=== PATIENT | female | born 1975 | race African-American/Black ===

== ENCOUNTER 2017-03-30 20:51 | Emergency (ER) | payer OTHER, MEDICAID ==
[~2017-03-30] VITALS: Ht 152.4 cm; Wt 54.0 kg
[2017-03-31 03:27] LABS: CLARITY URINE CLOUDY (CLEAR); COLOR URINE YELLOW (YELLOW); GLUCOSE URINE NEGATIVE (NEGATIVE); KETONES URINE TRACE (NEGATIVE); LEUKOCYTE ESTERASE URINE NEGATIVE (NEGATIVE); NITRITE URINE NEGATIVE (NEGATIVE); OCCULT BLOOD URINE TRACE (NEGATIVE); PROTEIN URINE TRACE (NEGATIVE); SPECIFIC GRAVITY URINE 1.035 (1.005-1.030)
[2017-03-31] MEDS ORDERED: DIPHENHYDRAMINE 50MG CAPSULE PO ONE (03:30)
[2017-03-31 03:32] LABS: CHLORIDE 108 mEq/L (98-107)
[2017-03-31 03:39] LABS: CARBON DIOXIDE 27 mEq/L (21-32)
[2017-03-31 03:41] LABS: BASOPHILS % 1.2 % (0.0-2.0); EOSINOPHILS % 5.5 % (0.0-5.0); HEMATOCRIT. 28.8 % (36.0-48.0); HEMOGLOBIN. 9.1 g/dL (12.0-16.0); LYMPHOCYTES % 23.5 % (20.0-50.0); MEAN CORPUSCULAR HEMOGLOBIN 24.8 pg (28.0-32.0); MEAN CORPUSCULAR VOLUME 78.3 fL (81.0-99.0); MEAN PLATELET VOLUME 7.7 fl (7.4-10.4); MONOCYTES % 9.9 % (2.0-8.0); NEUTROPHILS % 59.9 % (40.0-76.0); PLATELET 477 x1000/uL (130-400); RED BLOOD CELL COUNT 3.67 mill/uL (4.2-5.4); RED CELL DISTRIBUTION WIDTH 16.6 % (11.6-14.6)
[2017-03-31 06:07] VITALS: BP 105/68
[2017-03-31 12:22] LABS: UCG SCREEN NEGATIVE
== END 2017-03-31 06:09 | disposition home or self-care (01) ==
LOC: ER 03-31 01:22
DX: R21 Rash and other nonspecific skin eruption (principal); E11.9 Type 2 diabetes mellitus without complications
CPT/HCPCS: 36415; 80048; 80076; 81001; 81025; 85025; 99282; 99284; Q0163

== ENCOUNTER 2017-07-03 09:15 | Inpatient (IN) | payer OTHER, MEDICAID ==
[~2017-07-03] VITALS: Ht 152.4 cm; Wt 52.2 kg
[2017-07-03] MEDS ORDERED: DIPHENHYDRAMINE 50MG/ML VIAL IV ONE (12:15)
[2017-07-03 13:13] LABS: *AMPHETAMINES SCREEN URINE NEGATIVE (NEGATIVE); *BARBITURATES SCREEN URINE NEGATIVE (NEGATIVE); *BENZODIAZEPINES SCREEN URINE NEGATIVE (NEGATIVE); *COCAINE SCREEN URINE NEGATIVE (NEGATIVE); CANNABINOID URINE SCREEN NEGATIVE (NEGATIVE); METHADONE URINE SCREEN NEGATIVE (NEGATIVE); OPIATES URINE SCREEN NEGATIVE (NEGATIVE); PHENCYCLIDINE URINE SCREEN NEGATIVE (NEGATIVE)
[2017-07-03] MEDS ORDERED: FUROSEMIDE 40MG/4ML VIAL IVP ONE (13:30)
[2017-07-03 13:33] LABS: BASOPHILS % 0.9 % (0.0-2.0); EOSINOPHILS % 4.8 % (0.0-5.0); HEMATOCRIT. 24.8 % (36.0-48.0); HEMOGLOBIN. 7.9 g/dL (12.0-16.0); LYMPHOCYTES % 20.7 % (20.0-50.0); MEAN CORPUSCULAR HEMOGLOBIN 24.2 pg (28.0-32.0); MEAN CORPUSCULAR VOLUME 76.4 fL (81.0-99.0); MEAN PLATELET VOLUME 8.4 fl (7.4-10.4); MONOCYTES % 10.3 % (2.0-8.0); NEUTROPHILS % 63.3 % (40.0-76.0); PLATELET 276 x1000/uL (130-400); RED BLOOD CELL COUNT 3.25 mill/uL (4.2-5.4); RED CELL DISTRIBUTION WIDTH 18.6 % (11.6-14.6)
[2017-07-03 13:36] LABS: CARBON DIOXIDE 22 mEq/L (21-32); CHLORIDE 111 mEq/L (98-107)
[2017-07-03 13:39] LABS: INR 1.2; PROTHROMBIN TIME 12.1 sec (9.4-11.6)
[2017-07-03 13:43] LABS: HCG SCREEN NEGATIVE
[2017-07-03] MEDS ORDERED: KETOROLAC 30MG/ML VIAL IV ONE (13:45)
[2017-07-03] MEDS ORDERED: CLONIDINE 0.1MG TABLET PO PRN (14:30)
[2017-07-03] MEDS ORDERED: IPRATROPIUM/ALBUTEROL 0.5-3(2.5)MG/3ML NEB INH PRN (14:30)
[2017-07-03] MEDS ORDERED: ONDANSETRON HCL 4MG/2ML VIAL IV PRN (14:30)
[2017-07-03] MEDS ORDERED: ACETAMINOPHEN 325MG TABLET PO PRN (14:30)
[2017-07-03] MEDS ORDERED: DOCUSATE SODIUM 100MG CAPSULE PO PRN (14:30)
[2017-07-03] MEDS ORDERED: MAGNESIUM/ALUMINUM HYDROXIDE/SIMETHICONE 30ML UDC PO PRN (14:30)
[2017-07-03 14:43] LABS: TROPONIN I 0.03 ng/mL (0.00-0.04)
[2017-07-03 15:55] LABS: HEPATITIS B SURFACE ANTIGEN NEGATIVE
[2017-07-03 16:23] LABS: HEPATITIS B CORE AB IGM NEGATIVE
[2017-07-03 16:25] LABS: HEPATITIS A AB IGM NEGATIVE (NEGATIVE)
[2017-07-03 20:00] VITALS: BP 104/72
[2017-07-03] MEDS: FUROSEMIDE 40MG/4ML VIAL IV SCH (20:03)
[2017-07-03] MEDS: FERROUS SULFATE 325MG TABLET PO SCH (20:04)
[2017-07-03] MEDS: POTASSIUM CHLORIDE 20MEQ TABLET SR PO SCH (20:04)
[2017-07-03] MEDS: AMLODIPINE 2.5MG TABLET PO SCH (20:44)
[2017-07-03] MEDS: ENOXAPARIN 40MG/0.4ML SYR SUBCUT SCH (20:46)
[2017-07-04] VITALS: BP 107/67
[2017-07-04] MEDS: DIPHENHYDRAMINE 25MG CAPSULE PO PRN ×3 (00:46→16:20)
[2017-07-04] MEDS: HYDROCODONE/ACETAMINOPHEN 5/325MG TABLET PO PRN ×3 (00:48→16:20)
[2017-07-04 04:00] VITALS: BP 101/55
[2017-07-04 07:30] LABS: BASOPHILS % 1.1 % (0.0-2.0); EOSINOPHILS % 9.1 % (0.0-5.0); HEMATOCRIT. 25.1 % (36.0-48.0); HEMOGLOBIN. 7.8 g/dL (12.0-16.0); LYMPHOCYTES % 26.9 % (20.0-50.0); MEAN CORPUSCULAR HEMOGLOBIN 23.6 pg (28.0-32.0); MEAN CORPUSCULAR VOLUME 75.5 fL (81.0-99.0); MEAN PLATELET VOLUME 8.9 fl (7.4-10.4); MONOCYTES % 12.4 % (2.0-8.0); NEUTROPHILS % 50.5 % (40.0-76.0); PLATELET 312 x1000/uL (130-400); RED BLOOD CELL COUNT 3.32 mill/uL (4.2-5.4); RED CELL DISTRIBUTION WIDTH 18.6 % (11.6-14.6)
[2017-07-04 07:53] VITALS: BP 94/61
[2017-07-04] MEDS: POTASSIUM CHLORIDE 20MEQ TABLET SR PO SCH (08:05)
[2017-07-04] MEDS: FERROUS SULFATE 325MG TABLET PO SCH ×2 (08:05→17:25)
[2017-07-04] MEDS: FUROSEMIDE 40MG/4ML VIAL IV SCH ×2 (08:06→16:20)
[2017-07-04] MEDS: AMLODIPINE 2.5MG TABLET PO SCH ×2 (08:09→21:00)
[2017-07-04 08:17] LABS: CARBON DIOXIDE 25 mEq/L (21-32); CHLORIDE 108 mEq/L (98-107); HDL CHOLESTEROL 26 mg/dL (40-59); LDL CHOLESTEROL 78 mg/dL (5-100)
[2017-07-04] MEDS ORDERED: DEXTROSE 50% WATER 50ML SYRINGE IV PRN (11:15)
[2017-07-04] MEDS: BLOOD SUGAR DIAGNOSTIC STRIP TEST SCH ×3 (11:27→21:00)
[2017-07-04] MEDS: INSULIN LISPRO 100 UNITS/ML SUBCUT SCH ×3 (11:40→21:00)
[2017-07-04 11:48] LABS: CLARITY URINE CLEAR (CLEAR); COLOR URINE YELLOW (YELLOW); GLUCOSE URINE NEGATIVE (NEGATIVE); KETONES URINE NEGATIVE (NEGATIVE); LEUKOCYTE ESTERASE URINE NEGATIVE (NEGATIVE); NITRITE URINE NEGATIVE (NEGATIVE); OCCULT BLOOD URINE 3+ (NEGATIVE); PH URINE 6.5 (4.5-8.0); PROTEIN URINE NEGATIVE (NEGATIVE); UROBILINOGEN URINE 0.2 E.U./dL (0.2-1.0)
[2017-07-04 12:00] VITALS: BP 97/67
[2017-07-04 16:00] VITALS: BP 96/67
[2017-07-04 20:18] VITALS: BP 95/63
[2017-07-04] MEDS: ENOXAPARIN 40MG/0.4ML SYR SUBCUT SCH (21:51)
[2017-07-04] MEDS: CALAMINE LOTION 120ML TOP SCH (22:00)
[2017-07-05 03:59] VITALS: BP 97/63
[2017-07-05] MEDS: CALAMINE LOTION 120ML TOP SCH ×3 (05:12→21:27)
[2017-07-05] MEDS: BLOOD SUGAR DIAGNOSTIC STRIP TEST SCH ×4 (05:56→20:28)
[2017-07-05] MEDS: INSULIN LISPRO 100 UNITS/ML SUBCUT SCH ×4 (05:56→20:29)
[2017-07-05 07:01] LABS: BASOPHILS % 1.3 % (0.0-2.0); HEMATOCRIT. 26.6 % (36.0-48.0); HEMOGLOBIN. 8.2 g/dL (12.0-16.0); LYMPHOCYTES % 28.5 % (20.0-50.0); MEAN CORPUSCULAR HEMOGLOBIN 23.3 pg (28.0-32.0); MEAN CORPUSCULAR VOLUME 75.3 fL (81.0-99.0); MEAN PLATELET VOLUME 8.9 fl (7.4-10.4); MONOCYTES % 9.6 % (2.0-8.0); NEUTROPHILS % 50.6 % (40.0-76.0); PLATELET 339 x1000/uL (130-400); RED BLOOD CELL COUNT 3.53 mill/uL (4.2-5.4); RED CELL DISTRIBUTION WIDTH 18.8 % (11.6-14.6)
[2017-07-05 08:00] VITALS: BP 94/63
[2017-07-05 08:09] LABS: CARBON DIOXIDE 24 mEq/L (21-32); CHLORIDE 106 mEq/L (98-107)
[2017-07-05] MEDS: AMLODIPINE 2.5MG TABLET PO SCH ×2 (08:12→20:26)
[2017-07-05] MEDS: FUROSEMIDE 40MG/4ML VIAL IV SCH ×2 (08:22→20:25)
[2017-07-05] MEDS: POTASSIUM CHLORIDE 20MEQ TABLET SR PO SCH (08:22)
[2017-07-05] MEDS: FERROUS SULFATE 325MG TABLET PO SCH ×2 (08:22→17:18)
[2017-07-05] MEDS: DIPHENHYDRAMINE 25MG CAPSULE PO PRN (08:34)
[2017-07-05] MEDS: HYDROCODONE/ACETAMINOPHEN 5/325MG TABLET PO PRN ×2 (08:34→17:18)
[2017-07-05 12:00] VITALS: BP 91/61
[2017-07-05] MEDS ORDERED: LORAZEPAM 0.5MG TABLET PO PRN (13:45)
[2017-07-05] MEDS ORDERED: HYDROXYZINE 25MG TABLET PO PRN (14:00)
[2017-07-05 16:00] VITALS: BP 113/75
[2017-07-05] MEDS ORDERED: IVERMECTIN 3 MG TABLET PO ONE (19:45)
[2017-07-05 20:00] VITALS: BP 95/64
[2017-07-05] MEDS: HYDROXYZINE 25MG TABLET PO SCH (20:25)
[2017-07-05] MEDS: ENOXAPARIN 40MG/0.4ML SYR SUBCUT SCH (20:26)
[2017-07-06] VITALS: BP 99/68
[2017-07-06] MEDS: HYDROXYZINE 25MG TABLET PO SCH ×3 (00:55→14:14)
[2017-07-06] MEDS: HYDROCODONE/ACETAMINOPHEN 5/325MG TABLET PO PRN ×2 (00:57→12:55)
[2017-07-06 04:00] VITALS: BP 100/64
[2017-07-06] MEDS: CALAMINE LOTION 120ML TOP SCH (05:25)
[2017-07-06] MEDS: BLOOD SUGAR DIAGNOSTIC STRIP TEST SCH ×2 (05:39→11:25)
[2017-07-06] MEDS: INSULIN LISPRO 100 UNITS/ML SUBCUT SCH ×2 (05:40→12:40)
[2017-07-06 08:00] VITALS: BP 100/65
[2017-07-06] MEDS: FERROUS SULFATE 325MG TABLET PO SCH (08:03)
[2017-07-06] MEDS: FUROSEMIDE 40MG/4ML VIAL IV SCH (08:04)
[2017-07-06] MEDS: POTASSIUM CHLORIDE 20MEQ TABLET SR PO SCH (08:04)
[2017-07-06] MEDS: AMLODIPINE 2.5MG TABLET PO SCH (08:47)
[2017-07-06 16:21] VITALS: BP 91/87
== END 2017-07-06 17:00 | disposition home or self-care (01) | DRG 291 ==
LOC: ER 09:15 → 8WST 13:35 → EDBEDREQ 13:50 → ENRESERV 17:18
PROVIDERS: ADMIT Internal Medicine; ATTEND Internal Medicine
DX: I11.0 Hypertensive heart disease with heart failure (principal); J96.00 Acute respiratory failure, unspecified whether with hypoxia or hypercapnia; D72.1 Eosinophilia; F22 Delusional disorders; E88.09 Other disorders of plasma-protein metabolism, not elsewhere classified; R16.0 Hepatomegaly, not elsewhere classified; E11.9 Type 2 diabetes mellitus without complications; F41.9 Anxiety disorder, unspecified; L40.9 Psoriasis, unspecified; R74.0 Nonspecific elevation of levels of transaminase and lactic acid dehydrogenase [LDH]; I50.43 Acute on chronic combined systolic (congestive) and diastolic (congestive) heart failure; Z60.2 Problems related to living alone; D50.9 Iron deficiency anemia, unspecified; E87.6 Hypokalemia; K82.4 Cholesterolosis of gallbladder; I49.3 Ventricular premature depolarization; L29.9 Pruritus, unspecified; Z85.840 Personal history of malignant neoplasm of eye; Z87.891 Personal history of nicotine dependence
CPT/HCPCS: 36415; 71010; 76700; 80048; 80053; 80061; 80305; 81001; 82270; 82550; 82553; 82962; 83540; 83550; 83735; 83880; 84443; 84484; 84703; 85025; 85044; 85610; 85730; 86705; 86709; 86803; 87040; 87340; 93005; 93306; 93970; 94664; 99285; C1893; J1200; J1650; J1885; J1940; J7620; Q0163

== ENCOUNTER 2018-09-11 11:31 | Emergency (ER) | payer OTHER, MEDICAID ==
[~2018-09-11] VITALS: Ht 160 cm; Wt 60.0 kg
[~2018-09-11 11:31] MED LIST: CARV6.2548 PO; FERR325T6 PO; FURO40TA5 PO
[2018-09-11] MEDS ORDERED: KETOROLAC 60MG/2ML VIAL IM ONE (13:30)
[2018-09-11] MEDS ORDERED: TRAMADOL 50MG TABLET PO ONE (13:30)
[2018-09-11 15:15] VITALS: BP 114/72
== END 2018-09-11 15:45 | disposition home or self-care (01) ==
LOC: ER 11:31
DX: S16.1XXA Strain of muscle, fascia and tendon at neck level, initial encounter (principal); M47.812 Spondylosis without myelopathy or radiculopathy, cervical region; F41.9 Anxiety disorder, unspecified; E11.9 Type 2 diabetes mellitus without complications; I25.2 Old myocardial infarction; I10 Essential (primary) hypertension; W01.0XXA Fall on same level from slipping, tripping and stumbling without subsequent striking against object, initial encounter; Y93.89 Activity, other specified; Y92.89 Other specified places as the place of occurrence of the external cause; Y99.8 Other external cause status; Z88.6 Allergy status to analgesic agent
CPT/HCPCS: 70450; 72125; 81025; 96372; 99284; J1885

== ENCOUNTER 2019-04-03 21:24 | Emergency (ER) | payer OTHER, MEDICAID ==
[~2019-04-03] VITALS: Ht 152.4 cm; Wt 61.0 kg
[2019-04-03] MEDS ORDERED: ONDANSETRON HCL 4MG/2ML INJ IV STA (23:26)
[2019-04-03] MEDS ORDERED: KETOROLAC 30MG/ML VIAL IV STA (23:26)
[2019-04-03] MEDS ORDERED: SODIUM CHLORIDE 0.9% 1,000 ML IV ONE (23:26)
[2019-04-03 23:54] LABS: BASOPHILS % 0.9 % (0.0-2.0); EOSINOPHILS % 5.1 % (0.0-5.0); HEMATOCRIT. 33.1 % (36.0-48.0); HEMOGLOBIN. 10.9 g/dL (12.0-16.0); LYMPHOCYTES % 22.3 % (20.0-50.0); MEAN CORPUSCULAR HEMOGLOBIN 28.8 pg (28.0-32.0); MEAN CORPUSCULAR VOLUME 87.4 fL (81.0-99.0); MEAN PLATELET VOLUME 7.3 fl (7.4-10.4); MONOCYTES % 7.2 % (2.0-8.0); NEUTROPHILS % 64.5 % (40.0-76.0); PLATELET 478 x1000/uL (130-400); RED BLOOD CELL COUNT 3.78 mill/uL (4.2-5.4); RED CELL DISTRIBUTION WIDTH 16.8 % (11.6-14.6)
[2019-04-03 23:58] LABS: CHLORIDE 111 mEq/L (98-107)
[2019-04-04 00:10] LABS: CLARITY URINE CLEAR (CLEAR); COLOR URINE YELLOW (YELLOW); KETONES URINE TRACE (NEGATIVE); LEUKOCYTE ESTERASE URINE TRACE (NEGATIVE); NITRITE URINE NEGATIVE (NEGATIVE); OCCULT BLOOD URINE 3+ (NEGATIVE); PROTEIN URINE NEGATIVE (NEGATIVE); SPECIFIC GRAVITY URINE 1.025 (1.005-1.030)
[2019-04-04 05:07] VITALS: BP 114/62
== END 2019-04-04 05:00 | disposition home or self-care (01) ==
LOC: ER 21:24 → CANBEDREQ 04-04 05:27
DX: N23 Unspecified renal colic (principal); N39.0 Urinary tract infection, site not specified; I25.2 Old myocardial infarction; I11.0 Hypertensive heart disease with heart failure; I50.9 Heart failure, unspecified; F41.9 Anxiety disorder, unspecified; Z79.899 Other long term (current) drug therapy
CPT/HCPCS: 36415; 74176; 80053; 81003; 81025; 83605; 83690; 85025; 96361; 96374; 96375; 99284; J1885; J2405; J7030

== ENCOUNTER 2019-05-05 14:38 | Emergency (ER) | payer OTHER, MEDICAID ==
[~2019-05-05] VITALS: Ht 165.1 cm; Wt 61.0 kg
[2019-05-05 15:40] LABS: CHLORIDE 110 mEq/L (98-107)
[2019-05-05 15:48] LABS: EOSINOPHILS % 6.7 % (0.0-5.0); HEMATOCRIT. 33.8 % (36.0-48.0); HEMOGLOBIN. 11.3 g/dL (12.0-16.0); LYMPHOCYTES % 20.8 % (20.0-50.0); MEAN CORPUSCULAR HEMOGLOBIN 29.7 pg (28.0-32.0); MEAN PLATELET VOLUME 7.7 fl (7.4-10.4); MONOCYTES % 7.5 % (2.0-8.0); PLATELET 506 x1000/uL (130-400); RED CELL DISTRIBUTION WIDTH 15.2 % (11.6-14.6)
[2019-05-05 15:52] LABS: HCG SCREEN NEGATIVE
[2019-05-05] MEDS ORDERED: MORPHINE SULFATE 4 MG/ML CPJ (NOT FOR IM USE) IV STA (16:16)
[2019-05-05] MEDS ORDERED: ONDANSETRON HCL 4MG/2ML INJ IV STA (16:16)
[2019-05-05 21:22] VITALS: BP 132/77
== END 2019-05-05 23:13 | disposition left against medical advice (07) ==
LOC: ER 14:38 → CANBEDREQ 05-06 00:05
DX: R07.89 Other chest pain (principal); R06.02 Shortness of breath; F41.9 Anxiety disorder, unspecified; I11.0 Hypertensive heart disease with heart failure; I50.9 Heart failure, unspecified; E11.9 Type 2 diabetes mellitus without complications; I25.2 Old myocardial infarction; Z87.19 Personal history of other diseases of the digestive system; Z87.442 Personal history of urinary calculi
CPT/HCPCS: 36415; 71045; 80053; 81025; 83880; 84484; 84703; 85025; 85379; 93005; 96374; 96375; 99284; J2270; J2405

== ENCOUNTER 2019-07-14 12:42 | Emergency (ER) | payer OTHER, MEDICAID ==
[~2019-07-14] VITALS: Ht 162.6 cm; Wt 60.0 kg
[2019-07-14 14:18] LABS: BASOPHILS % 0.9 % (0.0-2.0); HEMATOCRIT. 36.2 % (36.0-48.0); LYMPHOCYTES % 23.9 % (20.0-50.0); MEAN CORPUSCULAR VOLUME 87.7 fL (81.0-99.0); MEAN PLATELET VOLUME 7.9 fl (7.4-10.4); MONOCYTES % 9.4 % (2.0-8.0); NEUTROPHILS % 58.8 % (40.0-76.0); PLATELET 440 x1000/uL (130-400); RED BLOOD CELL COUNT 4.13 mill/uL (4.2-5.4); RED CELL DISTRIBUTION WIDTH 15.8 % (11.6-14.6)
[2019-07-14 14:26] LABS: CHLORIDE 109 mEq/L (98-107)
[2019-07-14 15:08] LABS: HEPATITIS B SURFACE ANTIGEN NEGATIVE
[2019-07-14] MEDS ORDERED: ACETAMINOPHEN 500MG TABLET PO ONE (15:30)
[2019-07-14 15:31] LABS: CLARITY URINE CLEAR (CLEAR); COLOR URINE YELLOW (YELLOW); KETONES URINE NEGATIVE (NEGATIVE); LEUKOCYTE ESTERASE URINE NEGATIVE (NEGATIVE); NITRITE URINE NEGATIVE (NEGATIVE); OCCULT BLOOD URINE TRACE (NEGATIVE); PROTEIN URINE NEGATIVE (NEGATIVE); SPECIFIC GRAVITY URINE 1.022 (1.005-1.030)
[2019-07-14 15:35] LABS: PROTHROMBIN TIME 10.3 sec (9.6-11.0)
[2019-07-14 15:38] LABS: HEPATITIS A AB IGM NEGATIVE (NEGATIVE)
[2019-07-14 18:29] VITALS: BP 141/80
[2019-07-17 09:11] LABS: HIV SCREEN 4G Non Reactive (Non Reactive)
[2019-07-18 04:09] LABS: CHLAMYDIA NUCL AC AMPLIFIC Negative (Negative)
== END 2019-07-14 18:41 | disposition home or self-care (01) ==
LOC: ER 15:08
DX: A64 Unspecified sexually transmitted disease (principal); R10.9 Unspecified abdominal pain; F41.9 Anxiety disorder, unspecified; E11.9 Type 2 diabetes mellitus without complications; I11.0 Hypertensive heart disease with heart failure; I50.9 Heart failure, unspecified; I25.2 Old myocardial infarction; Z79.899 Other long term (current) drug therapy; Z87.442 Personal history of urinary calculi; Z98.890 Other specified postprocedural states
CPT/HCPCS: 36415; 71045; 81003; 81025; 84484; 86592; 86705; 86709; 86803; 87340; 87389; 87491; 87591; 93005; 99284

== ENCOUNTER 2019-10-07 14:14 | Emergency (ER) | payer MEDICARE, MEDICAID ==
[~2019-10-07] VITALS: Ht 172.7 cm; Wt 93.0 kg
[2019-10-07] MEDS ORDERED: DIPHENHYDRAMINE 50MG/ML VIAL IV ONE (16:30)
[2019-10-07] MEDS ORDERED: ASPIRIN 81MG TABLET PO ONE (16:30)
[2019-10-07] MEDS ORDERED: FAMOTIDINE 20MG/2ML VIAL IV ONE (16:30)
[2019-10-07] MEDS ORDERED: METHYLPREDNISOLONE SOD SUCC 125 MG/2 ML VIAL IV ONE (16:30)
[2019-10-07 17:10] LABS: BASOPHILS % 0.5 % (0.0-2.0); EOSINOPHILS % 6.9 % (0.0-5.0); HEMOGLOBIN. 12.2 g/dL (12.0-16.0); LYMPHOCYTES % 14.7 % (20.0-50.0); MEAN CORPUSCULAR HEMOGLOBIN 28.2 pg (28.0-32.0); MEAN CORPUSCULAR VOLUME 87.6 fL (81.0-99.0); MEAN PLATELET VOLUME 8.1 fl (7.4-10.4); MONOCYTES % 8.1 % (2.0-8.0); NEUTROPHILS % 69.8 % (40.0-76.0); PLATELET 410 x1000/uL (130-400); RED BLOOD CELL COUNT 4.34 mill/uL (4.2-5.4); RED CELL DISTRIBUTION WIDTH 15.1 % (11.6-14.6)
[2019-10-07 17:16] LABS: CHLORIDE 109 mEq/L (98-107)
[2019-10-07 17:20] LABS: ETHANOL BLOOD < 10 mg/dL
[2019-10-07 17:21] LABS: INR 0.9; PARTIAL THROMBOPLASTIN TIME 24.1 sec (23.4-31.0); PROTHROMBIN TIME 9.7 sec (9.6-11.0)
[2019-10-07 18:47] VITALS: BP 154/74
== END 2019-10-07 18:48 | disposition home or self-care (01) ==
LOC: ER 14:14 → SUPCPDRO 18:21 → ER 18:48 → CANBEDREQ 19:35
DX: L25.9 Unspecified contact dermatitis, unspecified cause (principal); F41.9 Anxiety disorder, unspecified; D72.829 Elevated white blood cell count, unspecified; I10 Essential (primary) hypertension; F17.200 Nicotine dependence, unspecified, uncomplicated; F32.9 Major depressive disorder, single episode, unspecified
CPT/HCPCS: 36415; 71045; 80053; 80320; 83690; 83880; 84484; 85025; 85610; 85730; 93005; 96374; 96375; 99284; J1200; J2930; J3490; G0480

== ENCOUNTER 2020-04-25 17:07 | Emergency (ER) | payer MEDICARE, MEDICAID ==
[~2020-04-25] VITALS: Ht 152.4 cm; Wt 55.0 kg
[2020-04-25] MEDS ORDERED: SODIUM CHLORIDE 0.9% 1,000 ML IV ONE (18:03)
[2020-04-25 18:10] VITALS: BP 131/81
[2020-04-25 20:55] LABS: BASOPHILS % 2.4 % (0.0-2.0); EOSINOPHILS % 5.2 % (0.0-5.0); HEMATOCRIT. 30.3 % (36.0-48.0); HEMOGLOBIN. 9.6 g/dL (12.0-16.0); LYMPHOCYTES % 22.3 % (20.0-50.0); MEAN CORPUSCULAR HEMOGLOBIN 26.1 pg (28.0-32.0); MEAN CORPUSCULAR VOLUME 81.8 fL (81.0-99.0); MONOCYTES % 7.2 % (2.0-8.0); NEUTROPHILS % 62.9 % (40.0-76.0); PLATELET 460 x1000/uL (130-400); RED CELL DISTRIBUTION WIDTH 15.8 % (11.6-14.6)
[2020-04-25 21:00] LABS: CHLORIDE 108 mEq/L (98-107)
[2020-04-25 21:02] LABS: CLARITY URINE TURBID (CLEAR); COLOR URINE RED (YELLOW); KETONES URINE NEGATIVE (NEGATIVE); LEUKOCYTE ESTERASE URINE 2+ (NEGATIVE); NITRITE URINE NEGATIVE (NEGATIVE); OCCULT BLOOD URINE 3+ (NEGATIVE); PH URINE 6.5 (4.5-8.0); PROTEIN URINE 2+ (NEGATIVE); SPECIFIC GRAVITY URINE 1.024 (1.005-1.030); UROBILINOGEN URINE 0.2 E.U./dL (0.2-1.0)
[2020-04-25 21:08] LABS: HCG SCREEN NEGATIVE
[2020-04-25 21:12] LABS: B-HCG QUANTITATIVE < 1 mIU/mL (<3)
[2020-04-25 21:20] LABS: PROTHROMBIN TIME 10.2 sec (9.6-11.0)
== END 2020-04-25 22:00 | disposition home or self-care (01) ==
LOC: ER 17:15 → CANBEDREQ 22:40
DX: N93.9 Abnormal uterine and vaginal bleeding, unspecified (principal); F32.9 Major depressive disorder, single episode, unspecified; I10 Essential (primary) hypertension; F41.9 Anxiety disorder, unspecified; F20.9 Schizophrenia, unspecified
CPT/HCPCS: 36415; 76830; 76856; 80053; 81003; 84702; 84703; 85025; 85610; 96360; 99285; J7030

== ENCOUNTER 2021-10-28 19:59 | Emergency (ER) | payer MEDICARE, MEDICAID ==
[~2021-10-28] VITALS: Ht 152.4 cm; Wt 45.0 kg
[2021-10-28] MEDS ORDERED: ASPIRIN 81MG TABLET PO ONE (23:30)
[2021-10-29 00:17] LABS: BASOPHILS % 1.1 % (0.0-2.0); EOSINOPHILS % 5.7 % (0.0-5.0); HEMATOCRIT. 26.2 % (36.0-48.0); HEMOGLOBIN. 8.2 g/dL (12.0-16.0); LYMPHOCYTES % 26.9 % (20.0-50.0); MEAN CORPUSCULAR HEMOGLOBIN 24.1 pg (28.0-32.0); MEAN CORPUSCULAR VOLUME 77.5 fL (81.0-99.0); MEAN PLATELET VOLUME 7.4 fl (7.4-10.4); MONOCYTES % 9.5 % (2.0-8.0); NEUTROPHILS % 56.8 % (40.0-76.0); PLATELET 325 x1000/uL (130-400); RED BLOOD CELL COUNT 3.38 mill/uL (4.2-5.4); RED CELL DISTRIBUTION WIDTH 18.4 % (11.6-14.6)
[2021-10-29 00:35] LABS: CHLORIDE 113 mEq/L (98-107)
[2021-10-29 02:00] VITALS: BP 122/88
[2021-10-29] MEDS ORDERED: FUROSEMIDE 40MG/4 ML UDC PO SCH (02:00)
[2021-10-29] MEDS ORDERED: FURO-151 MT (02:00)
== END 2021-10-29 02:58 | disposition home or self-care (01) ==
LOC: ER 19:59
DX: I11.0 Hypertensive heart disease with heart failure (principal); I50.9 Heart failure, unspecified; F41.9 Anxiety disorder, unspecified; F31.9 Bipolar disorder, unspecified; Z91.14 Patient's other noncompliance with medication regimen
CPT/HCPCS: 36415; 71045; 80053; 83880; 84484; 85025; 93005; 93970; 99284; J1940

== ENCOUNTER 2022-01-16 08:06 | Emergency (ER) | payer MEDICARE, MEDICAID ==
[~2022-01-16] VITALS: Ht 165.1 cm; Wt 55.0 kg
[~2022-01-16 08:06] MED LIST changes: +FURO-151 MT
[2022-01-16 09:11] LABS: BASOPHILS % 0.9 % (0.0-2.0); EOSINOPHILS % 2.3 % (0.0-5.0); HEMOGLOBIN. 9.9 g/dL (12.0-16.0); LYMPHOCYTES % 20.9 % (20.0-50.0); MEAN CORPUSCULAR HEMOGLOBIN 22.4 pg (28.0-32.0); MEAN CORPUSCULAR VOLUME 76.6 fL (81.0-99.0); MEAN PLATELET VOLUME 8.2 fl (7.4-10.4); MONOCYTES % 7.2 % (2.0-8.0); NEUTROPHILS % 68.7 % (40.0-76.0); PLATELET 308 x1000/uL (130-400); RED BLOOD CELL COUNT 4.44 mill/uL (4.2-5.4)
[2022-01-16] MEDS ORDERED: MORPHINE SULFATE 4 MG/ML CPJ (NOT FOR IM USE) IV ONE (09:15)
[2022-01-16 09:19] LABS: CHLORIDE 108 mEq/L (98-107)
[2022-01-16] MEDS ORDERED: FUROSEMIDE 40MG/4ML VIAL IVP NR (10:30)
[2022-01-16] MEDS ORDERED: ASPIRIN 81MG TABLET PO SCH (10:30)
[2022-01-16] MEDS ORDERED: HEPARIN 25,000 UNITS PREMIX 250 ML IV ONE (11:00)
[2022-01-16] MEDS ORDERED: ASPIRIN 81MG TABLET PO ONE (11:00)
[2022-01-16] MEDS ORDERED: HEPARIN 25,000 UNITS PREMIX 250 ML IV SCH (12:15)
[2022-01-16] MEDS ORDERED: HEPARIN BOLUS PRN aPTT <30 IV (12:15)
[2022-01-16] MEDS ORDERED: HEPARIN BOLUS PRN aPTT 30-44 IV (12:15)
[2022-01-16 12:17] LABS: INR 1.4; PARTIAL THROMBOPLASTIN TIME 25.4 sec (23.4-31.0); PROTHROMBIN TIME 14.2 sec (9.6-11.0)
[2022-01-16] MEDS ORDERED: HEPARIN 60 UNITS/KG BOLUS IV NR (12:30)
[2022-01-16 16:27] VITALS: BP 99/68
== END 2022-01-16 16:29 | disposition admitted as inpatient to this hospital (09) ==
LOC: ER 08:06 → CANBEDREQ 17:17
DX: I20.0 Unstable angina (principal); I10 Essential (primary) hypertension; I11.0 Hypertensive heart disease with heart failure; I50.9 Heart failure, unspecified; R77.8 Other specified abnormalities of plasma proteins; E11.9 Type 2 diabetes mellitus without complications; Z98.890 Other specified postprocedural states; Z20.822 Contact with and (suspected) exposure to COVID-19
CPT/HCPCS: 36415; 71045; 80053; 83690; 83880; 84484; 85025; 85610; 85730; 87426; 93005; 96365; 96375; 99291; J1644; J1940; J2270

== ENCOUNTER 2022-03-04 15:41 | Inpatient (IN) | payer MEDICARE, MEDICAID ==
[~2022-03-04] VITALS: Ht 154.9 cm; Wt 51.3 kg
[2022-03-04 16:47] LABS: BASOPHILS % 0.7 % (0.0-2.0); EOSINOPHILS % 3.2 % (0.0-5.0); HEMATOCRIT. 31.5 % (36.0-48.0); HEMOGLOBIN. 9.8 g/dL (12.0-16.0); LYMPHOCYTES % 29.7 % (20.0-50.0); MEAN CORPUSCULAR HEMOGLOBIN 23.3 pg (28.0-32.0); MEAN CORPUSCULAR VOLUME 75.1 fL (81.0-99.0); MEAN PLATELET VOLUME 7.3 fl (7.4-10.4); MONOCYTES % 8.6 % (2.0-8.0); NEUTROPHILS % 57.8 % (40.0-76.0); PLATELET 373 x1000/uL (130-400); RED CELL DISTRIBUTION WIDTH 24.1 % (11.6-14.6)
[2022-03-04 16:53] LABS: CHLORIDE 103 mEq/L (98-107)
[2022-03-04 17:20] LABS: PLATELET ESTIMATE NORMAL
[2022-03-04] MEDS: ASPIRIN 81MG TABLET PO ONE ×2 (19:43→19:45)
[2022-03-04] MEDS ORDERED: HYDROCODONE/ACETAMINOPHEN 5/325MG TABLET PO ONE (21:15)
[2022-03-05] MEDS ORDERED: ONDANSETRON HCL 4MG/2ML INJ IV PRN (08:30)
[2022-03-05] MEDS ORDERED: ACETAMINOPHEN 325MG TABLET PO PRN (08:30)
[2022-03-05] MEDS ORDERED: POTASSIUM CHLORIDE 20MEQ TABLET SR PO NR (09:30)
[2022-03-05 09:40] VITALS: BP 98/64
[2022-03-05] MEDS ORDERED: APIX5TAB4 PO (10:31)
[2022-03-05] MEDS ORDERED: ASPI-867 MT (10:32)
[2022-03-05 10:33] VITALS: BP 105/61
[2022-03-05] MEDS: ASPIRIN 81MG TABLET PO SCH (11:03)
[2022-03-05] MEDS ORDERED: METF500S7 PO (11:47)
[2022-03-05] MEDS ORDERED: ATOR40TA70 PO (11:48)
[2022-03-05] MEDS ORDERED: [UNRECOGNIZED DRUG - CODE] MC (11:51)
[2022-03-05] MEDS ORDERED: METO-396 PO (11:54)
[2022-03-05] MEDS ORDERED: NITR0.4T49 SL (11:56)
[2022-03-05 12:00] VITALS: BP 96/61
[2022-03-05 14:28] VITALS: BP 96/56
[2022-03-05 16:00] VITALS: BP 95/59
[2022-03-05 16:00] LABS: *AMPHETAMINES SCREEN URINE NEGATIVE (NEGATIVE); *BARBITURATES SCREEN URINE NEGATIVE (NEGATIVE); *BENZODIAZEPINES SCREEN URINE NEGATIVE (NEGATIVE); *COCAINE SCREEN URINE NEGATIVE (NEGATIVE); CANNABINOID URINE SCREEN NEGATIVE (NEGATIVE); METHADONE URINE SCREEN NEGATIVE (NEGATIVE); PHENCYCLIDINE URINE SCREEN NEGATIVE (NEGATIVE)
[2022-03-05 16:01] LABS: OPIATES URINE SCREEN PRESUMTIVE POSITIVE (NEGATIVE)
[2022-03-05 20:00] VITALS: BP 104/61
[2022-03-05] MEDS ORDERED: HYDROCODONE/ACETAMINOPHEN 5/325MG TABLET PO PRN (20:30)
[2022-03-05] MEDS ORDERED: NALOXONE HCL 0.4MG/ML VIAL IV PRN (20:30)
[2022-03-05 22:00] LABS: CREATINE KINASE MB FRACTION 1.7 ng/mL (0.5-3.6)
[2022-03-05] MEDS ORDERED: ASPI-1406 PO (23:02)
[2022-03-05] MEDS ORDERED: DIGO125T80 PO (23:02)
[2022-03-05] MEDS ORDERED: ATORVASTATIN CALCIUM 40MG TABLET PO SCH (23:15)
[2022-03-05] MEDS: DIGOXIN 125MCG TABLET PO SCH (23:24)
[2022-03-05] MEDS ORDERED: *PATIENT'S OWN MEDICATION STORAGE XX SCH (23:45)
[2022-03-06] VITALS: BP 110/72
[2022-03-06 04:00] VITALS: BP 98/49
[2022-03-06 08:00] VITALS: BP 100/53
[2022-03-06] MEDS: DIGOXIN 125MCG TABLET PO SCH (09:00)
[2022-03-06] MEDS: ASPIRIN 81MG TABLET PO SCH (09:59)
[2022-03-06 12:00] VITALS: BP 97/67
[2022-03-06 16:00] VITALS: BP 115/82
[2022-03-06 16:39] VITALS: BP 115/82
[2022-03-06] MEDS ORDERED: ATORVASTATIN CALCIUM 40MG TABLET PO SCH (18:00)
== END 2022-03-06 17:00 | disposition home or self-care (01) | DRG 206 ==
LOC: ER 15:41 → MICUSO 03-05 00:03 → 6WST 03-05 10:23
PROVIDERS: ADMIT Internal Medicine; ATTEND Internal Medicine
DX: M94.0 Chondrocostal junction syndrome [Tietze] (principal); I42.9 Cardiomyopathy, unspecified; E11.9 Type 2 diabetes mellitus without complications; I11.0 Hypertensive heart disease with heart failure; I50.9 Heart failure, unspecified; E87.6 Hypokalemia; F41.9 Anxiety disorder, unspecified; D64.9 Anemia, unspecified; Z60.2 Problems related to living alone; F31.9 Bipolar disorder, unspecified; R19.7 Diarrhea, unspecified; E78.00 Pure hypercholesterolemia, unspecified; Z85.840 Personal history of malignant neoplasm of eye; Z86.73 Personal history of transient ischemic attack (TIA), and cerebral infarction without residual deficits; Z91.19 Patient's noncompliance with other medical treatment and regimen; Z79.01 Long term (current) use of anticoagulants; Z79.82 Long term (current) use of aspirin; Z79.84 Long term (current) use of oral hypoglycemic drugs; Z79.899 Other long term (current) drug therapy
CPT/HCPCS: 36415; 71045; 80053; 80305; 82550; 82553; 83880; 84484; 85025; 93005; 93306; 99285

== ENCOUNTER 2022-07-29 13:54 | Emergency (ER) | payer MEDICARE, MEDICAID ==
[~2022-07-29] VITALS: Ht 154.9 cm; Wt 52.0 kg
[~2022-07-29 13:54] MED LIST changes: +APIX5TAB4 PO; +ASPI-1406 PO; +ATOR40TA70 PO; +DIGO125T80 PO; +METF500S9 PO; +NITR0.4T49 SL
[2022-07-29 14:08] VITALS: BP 126/80
[2022-07-29] MEDS ORDERED: ACETAMINOPHEN 325MG TABLET PO PRN (14:30)
[2022-07-29 15:19] LABS: BASOPHILS % 0.7 % (0.0-2.0); EOSINOPHILS % 3.2 % (0.0-5.0); HEMATOCRIT. 33.9 % (36.0-48.0); HEMOGLOBIN. 10.9 g/dL (12.0-16.0); LYMPHOCYTES % 16.3 % (20.0-50.0); MEAN CORPUSCULAR HEMOGLOBIN 27.3 pg (28.0-32.0); MEAN CORPUSCULAR VOLUME 85.1 fL (81.0-99.0); MEAN PLATELET VOLUME 7.3 fl (7.4-10.4); MONOCYTES % 6.3 % (2.0-8.0); NEUTROPHILS % 73.5 % (40.0-76.0); PLATELET 515 x1000/uL (130-400); RED BLOOD CELL COUNT 3.98 mill/uL (4.2-5.4); RED CELL DISTRIBUTION WIDTH 16.6 % (11.6-14.6)
[2022-07-29 15:25] LABS: CHLORIDE 106 mEq/L (98-107)
[2022-07-29 15:30] LABS: CLARITY URINE CLEAR (CLEAR); COLOR URINE DARK YELLOW (YELLOW); KETONES URINE TRACE (NEGATIVE); LEUKOCYTE ESTERASE URINE 1+ (NEGATIVE); NITRITE URINE NEGATIVE (NEGATIVE); OCCULT BLOOD URINE NEGATIVE (NEGATIVE); PROTEIN URINE NEGATIVE (NEGATIVE); SPECIFIC GRAVITY URINE 1.027 (1.005-1.030)
[2022-07-29 15:37] LABS: B-HCG QUANTITATIVE < 1 mIU/mL (<3)
[2022-07-29] MEDS ORDERED: CLOT21CR4 VG (18:24)
[2022-07-29] MEDS ORDERED: NITR100C PO (18:24)
[2022-07-29] MEDS ORDERED: ACET-2708 MT (18:24)
== END 2022-07-29 18:49 | disposition home or self-care (01) ==
LOC: ER 13:54
DX: R14.0 Abdominal distension (gaseous) (principal); R10.9 Unspecified abdominal pain; D25.9 Leiomyoma of uterus, unspecified; N39.0 Urinary tract infection, site not specified; F31.9 Bipolar disorder, unspecified; F41.9 Anxiety disorder, unspecified; I11.0 Hypertensive heart disease with heart failure; I50.9 Heart failure, unspecified; F17.210 Nicotine dependence, cigarettes, uncomplicated; E11.9 Type 2 diabetes mellitus without complications; Z85.9 Personal history of malignant neoplasm, unspecified; Z86.73 Personal history of transient ischemic attack (TIA), and cerebral infarction without residual deficits
CPT/HCPCS: 36415; 76830; 76856; 80053; 81003; 84702; 85025; 99284

== ENCOUNTER 2023-05-13 15:20 | Emergency (ER) | payer MEDICARE, MEDICAID ==
[~2023-05-13] VITALS: Ht 144.8 cm; Wt 49.0 kg
[~2023-05-13 15:20] MED LIST changes: +ACET-2708 MT; +CLOT21CR4 VG; +NITR100C PO
[2023-05-13 15:43] VITALS: BP 133/86; PULSE 77; RESP 16; TEMP 98.7; O2SAT 100
== END 2023-05-13 19:17 | disposition home or self-care (01) ==
LOC: ER 15:20
DX: S80.11XA Contusion of right lower leg, initial encounter (principal); F41.9 Anxiety disorder, unspecified; F31.9 Bipolar disorder, unspecified; I11.0 Hypertensive heart disease with heart failure; I50.9 Heart failure, unspecified; E11.9 Type 2 diabetes mellitus without complications; E78.00 Pure hypercholesterolemia, unspecified; Z86.73 Personal history of transient ischemic attack (TIA), and cerebral infarction without residual deficits; Z79.899 Other long term (current) drug therapy; X58.XXXA Exposure to other specified factors, initial encounter; Y93.89 Activity, other specified; Y92.89 Other specified places as the place of occurrence of the external cause; Y99.8 Other external cause status
CPT/HCPCS: 73590; 99283

== ENCOUNTER 2024-03-30 22:28 | Emergency (ER) | payer MEDICARE, MEDICAID ==
[~2024-03-30] VITALS: Ht 152.4 cm; Wt 47.0 kg
[~2024-03-30 22:28] MED LIST changes: +ASPI-1497 MT; +ATOR20TA MT; -ATOR40TA70 PO; -CARV6.2548 PO; -CLOT21CR4 VG; +COR3 MT; -NITR100C PO
[2024-03-30 22:40] VITALS: TEMP 97.9; O2SAT 99
[2024-03-31] MEDS ORDERED: MORPHINE SULFATE 4 MG/ML INJ (FOR IV/IM USE) IV STA (00:28)
[2024-03-31] MEDS ORDERED: ONDANSETRON HCL 4MG/2ML INJ IV STA (00:28)
[2024-03-31] MEDS: SODIUM CHLORIDE 0.9% 1,000 ML IV ONE (00:30)
[2024-03-31 01:17] LABS: BASOPHILS % 0.9 % (0.0-2.0); HEMATOCRIT. 38.5 % (36.0-48.0); HEMOGLOBIN. 12.4 g/dL (12.0-16.0); LYMPHOCYTES % 20.3 % (20.0-50.0); MEAN CORPUSCULAR HEMOGLOBIN 28.5 pg (28.0-32.0); MEAN CORPUSCULAR HGB CONC 32.1 g/dL (31.0-37.0); MEAN CORPUSCULAR VOLUME 88.9 fL (81.0-99.0); MEAN PLATELET VOLUME 7.1 fl (7.4-10.4); MONOCYTES % 7.6 % (2.0-8.0); NEUTROPHILS % 65.2 % (40.0-76.0); PLATELET 469 x1000/uL (130-400); RED BLOOD CELL COUNT 4.33 mill/uL (4.2-5.4); RED CELL DISTRIBUTION WIDTH 16.6 % (11.6-14.6); WHITE BLOOD COUNT 5.8 x1000/uL (4.5-11.0)
[2024-03-31 01:22] LABS: CHLORIDE 108 mEq/L (98-107); POTASSIUM 3.8 mEq/L (3.5-5.1); SODIUM 141 mEq/L (136-145)
[2024-03-31 01:23] LABS: CALCIUM 10.3 mg/dL (8.7-10.4); CARBON DIOXIDE 28 mEq/L (21-32)
[2024-03-31 01:28] LABS: CREATININE 0.5 mg/dL (0.6-1.0); GLUCOSE 92 mg/dL (70-105); UREA NITROGEN BLOOD 15 mg/dL (9-23)
[2024-03-31 01:30] LABS: TROPONIN I HIGH SENSITIVITY 15 ng/L (3.0-34)
[2024-03-31 04:03] VITALS: BP 116/67; PULSE 68; RESP 16
[2024-03-31] MEDS: ONDANSETRON HCL 4MG/2ML INJ IV NR (04:03)
[2024-03-31] MEDS: MORPHINE SULFATE 4 MG/ML INJ (FOR IV/IM USE) IV NR (04:03)
[2024-03-31 04:55] LABS: TROPONIN I HIGH SENSITIVITY 13 ng/L (3.0-34)
[2024-03-31] MEDS ORDERED: HYDR-4001 MT (06:03)
== END 2024-03-31 06:10 | disposition home or self-care (01) ==
LOC: ER 22:28
DX: R07.89 Other chest pain (principal); I11.0 Hypertensive heart disease with heart failure; I50.9 Heart failure, unspecified; I21.9 Acute myocardial infarction, unspecified; E11.9 Type 2 diabetes mellitus without complications; E78.00 Pure hypercholesterolemia, unspecified; Z79.899 Other long term (current) drug therapy; Z98.890 Other specified postprocedural states; Z86.73 Personal history of transient ischemic attack (TIA), and cerebral infarction without residual deficits
CPT/HCPCS: 99284; 80048; 83880; 85025; 85379; 84484; 36415; 96374; 71250; 71045; 96375; 93005; J2405; J2270; J7030

== ENCOUNTER 2024-06-13 18:16 | Inpatient (IN) | payer MEDICARE, MEDICAID ==
[~2024-06-13] VITALS: Ht 152.4 cm; Wt 49.9 kg
[~2024-06-13 18:16] MED LIST changes: +HYDR-4001 MT
[2024-06-13 19:40] LABS: BASOPHILS % 0.9 % (0.0-2.0); EOSINOPHILS % 2.7 % (0.0-5.0); HEMATOCRIT. 35.4 % (36.0-48.0); HEMOGLOBIN. 11.5 g/dL (12.0-16.0); MEAN CORPUSCULAR HGB CONC 32.5 g/dL (31.0-37.0); MEAN CORPUSCULAR VOLUME 95.6 fL (81.0-99.0); MEAN PLATELET VOLUME 7.7 fl (7.4-10.4); MONOCYTES % 7.4 % (2.0-8.0); PLATELET 383 x1000/uL (130-400); RED CELL DISTRIBUTION WIDTH 15.3 % (11.6-14.6); WHITE BLOOD COUNT 5.3 x1000/uL (4.5-11.0)
[2024-06-13 19:42] LABS: CARBON DIOXIDE 26 mEq/L (21-32); CHLORIDE 112 mEq/L (98-107); POTASSIUM 3.5 mEq/L (3.5-5.1); SODIUM 144 mEq/L (136-145)
[2024-06-13 19:43] LABS: CALCIUM 9.4 mg/dL (8.7-10.4)
[2024-06-13 19:47] LABS: CREATININE 0.5 mg/dL (0.6-1.0); GLUCOSE 109 mg/dL (70-105)
[2024-06-13 19:48] LABS: UREA NITROGEN BLOOD 11 mg/dL (9-23)
[2024-06-13 19:51] LABS: TROPONIN I HIGH SENSITIVITY 13 ng/L (3.0-34)
[2024-06-13] MEDS ORDERED: FUROSEMIDE 20MG/2ML VIAL IVP ONE (20:00)
[2024-06-13] MEDS: FUROSEMIDE 40MG/4ML VIAL IVP NR (20:16)
[2024-06-14] MEDS: POTASSIUM CHLORIDE 20MEQ/PACKET PO NR (12:15)
[2024-06-14] MEDS: FUROSEMIDE 20MG/2ML VIAL IVP SCH ×2 (12:15→18:04)
[2024-06-14] MEDS ORDERED: ONDANSETRON HCL 4MG/2ML INJ IV PRN (13:00)
[2024-06-14] MEDS ORDERED: IPRATROPIUM/ALBUTEROL 0.5-3(2.5)MG/3ML NEB HHN PRN (13:00)
[2024-06-14] MEDS: ENOXAPARIN 40MG/0.4ML SYR SUBCUT SCH (16:14)
[2024-06-14 16:30] VITALS: BP 105/77; PULSE 85; RESP 20; TEMP 36.3918; TEMP 36.418; O2SAT 98
[2024-06-14] MEDS: MORPHINE SULFATE 2 MG/ML INJ (NOT FOR IM USE) IV NR (18:05)
[2024-06-14 20:00] VITALS: BP 121/87; PULSE 74; RESP 20; TEMP 36.55848; O2SAT 99
[2024-06-14] MEDS: TRAZODONE HCL 50MG TABLET PO SCH (22:28)
[2024-06-15 04:00] VITALS: BP 123/88; PULSE 78; RESP 20; TEMP 36.3918; O2SAT 100
[2024-06-15 07:26] LABS: HEMATOCRIT 36.4 % (36.0-48.0); HEMOGLOBIN 11.7 g/dL (12.0-16.0); MEAN CORPUSCULAR HEMOGLOBIN 30.2 pg (28.0-32.0); MEAN CORPUSCULAR VOLUME 94.5 fL (81.0-99.0); PLATELET 338 x1000/uL (130-400); RED BLOOD CELL COUNT 3.85 mill/uL (4.2-5.4); RED CELL DISTRIBUTION WIDTH 14.8 % (11.6-14.6); WHITE BLOOD COUNT 4.6 x1000/uL (4.5-11.0)
[2024-06-15 07:38] LABS: TROPONIN I HIGH SENSITIVITY 15 ng/L (3.0-34)
[2024-06-15 07:43] LABS: CARBON DIOXIDE 23 mEq/L (21-32); CHLORIDE 108 mEq/L (98-107); POTASSIUM 3.6 mEq/L (3.5-5.1); SODIUM 141 mEq/L (136-145)
[2024-06-15 07:44] LABS: CALCIUM 9.7 mg/dL (8.7-10.4); T4 FREE 1.05 ng/dL (0.89-1.76)
[2024-06-15 07:49] LABS: CREATININE 0.6 mg/dL (0.6-1.0); GLUCOSE 77 mg/dL (70-105); UREA NITROGEN BLOOD 12 mg/dL (9-23)
[2024-06-15] MEDS ORDERED: NALOXONE HCL 0.4MG/ML VIAL IV PRN (08:30)
[2024-06-15 08:43] VITALS: BP 112/75; PULSE 76; RESP 18; TEMP 36.50292; O2SAT 100
[2024-06-15] MEDS: HYDROCODONE/ACETAMINOPHEN 5/325MG TABLET PO PRN (08:46)
[2024-06-15 16:22] VITALS: BP 124/90; PULSE 89; RESP 20; TEMP 36.55848
[2024-06-15 16:47] VITALS: BP 103/68; PULSE 73; RESP 18; TEMP 36.61404; O2SAT 98
[2024-06-15 18:01] VITALS: BP 103/68; PULSE 73; TEMP 97.9; O2SAT 99
== END 2024-06-15 20:25 | disposition home or self-care (01) | DRG 291 ==
LOC: ER 18:16 → 5WST 19:52 → 7WST 06-14 16:30
PROVIDERS: ADMIT Internal Medicine; ATTEND Internal Medicine
DX: I11.0 Hypertensive heart disease with heart failure (principal); I50.31 Acute diastolic (congestive) heart failure; I42.0 Dilated cardiomyopathy; I25.2 Old myocardial infarction; R22.2 Localized swelling, mass and lump, trunk; E11.9 Type 2 diabetes mellitus without complications; E78.00 Pure hypercholesterolemia, unspecified; F31.9 Bipolar disorder, unspecified; R06.00 Dyspnea, unspecified; I25.10 Atherosclerotic heart disease of native coronary artery without angina pectoris; F41.9 Anxiety disorder, unspecified; Z86.73 Personal history of transient ischemic attack (TIA), and cerebral infarction without residual deficits; Z91.148 Patient's other noncompliance with medication regimen for other reason; Z79.899 Other long term (current) drug therapy
CPT/HCPCS: 36415; 71045; 73060; 80048; 83880; 84439; 84443; 84484; 85025; 85027; 85379; 93005; 93306; 99285; J1650; J1940; J2270

== ENCOUNTER 2024-09-15 15:56 | Emergency (ER) | payer MEDICARE, MEDICAID ==
[~2024-09-15] VITALS: Ht 162.6 cm; Wt 58.0 kg
[~2024-09-15 15:56] MED LIST changes: -ASPI-1406 PO; -DIGO125T80 PO; -FERR325T6 PO; -FURO40TA5 PO; -HYDR-4001 MT; -NITR0.4T49 SL
[2024-09-15 16:04] VITALS: O2SAT 98
[2024-09-15] MEDS: KETOROLAC 30MG/ML VIAL IM ONE (19:00)
[2024-09-15] MEDS ORDERED: BENZ1LOZ73 MT (19:51)
[2024-09-15] MEDS ORDERED: GUAI-450 MT (19:51)
[2024-09-15 20:13] VITALS: BP 91/60; PULSE 79; RESP 20; TEMP 37.16964; O2SAT 99
== END 2024-09-15 20:15 | disposition home or self-care (01) ==
LOC: ER 15:56
DX: B34.9 Viral infection, unspecified (principal); F41.9 Anxiety disorder, unspecified; E11.9 Type 2 diabetes mellitus without complications; F31.9 Bipolar disorder, unspecified; E78.00 Pure hypercholesterolemia, unspecified; I11.0 Hypertensive heart disease with heart failure; I50.9 Heart failure, unspecified; I25.2 Old myocardial infarction; Z79.899 Other long term (current) drug therapy; Z86.73 Personal history of transient ischemic attack (TIA), and cerebral infarction without residual deficits; Z20.822 Contact with and (suspected) exposure to COVID-19
CPT/HCPCS: 99283; 71045; 87426; 87804 ×2; 96372; J1885

== ENCOUNTER 2024-11-06 14:52 | Emergency (ER) | payer MEDICARE, MEDICAID ==
[~2024-11-06] VITALS: Ht 152.4 cm; Wt 47.0 kg
[~2024-11-06 14:52] MED LIST changes: +BENZ1LOZ73 MT; +GUAI-450 MT
[2024-11-06 15:00] VITALS: TEMP 36.8; O2SAT 99
[2024-11-06] MEDS ORDERED: KETO15CR2 TP (16:38)
[2024-11-06 20:00] VITALS: BP 111/59; PULSE 80; RESP 17; O2SAT 99
== END 2024-11-06 20:01 | disposition home or self-care (01) ==
LOC: ER 14:52
DX: B35.4 Tinea corporis (principal); E11.9 Type 2 diabetes mellitus without complications; E78.00 Pure hypercholesterolemia, unspecified; F31.9 Bipolar disorder, unspecified; I11.0 Hypertensive heart disease with heart failure; I50.9 Heart failure, unspecified; Z79.01 Long term (current) use of anticoagulants; Z79.82 Long term (current) use of aspirin; Z79.84 Long term (current) use of oral hypoglycemic drugs; Z79.899 Other long term (current) drug therapy; Z86.73 Personal history of transient ischemic attack (TIA), and cerebral infarction without residual deficits
CPT/HCPCS: 99281

== ENCOUNTER 2024-12-11 13:15 | Emergency (ER) | payer MEDICARE, MEDICAID ==
[~2024-12-11] VITALS: Ht 152.4 cm; Wt 108.0 kg
[~2024-12-11 13:15] MED LIST changes: +KETO15CR2 TP
[2024-12-11 13:32] VITALS: BP 127/80; PULSE 72; RESP 16; TEMP 36.9; O2SAT 100
[2024-12-11] MEDS ORDERED: TERB250T88 MT (16:16)
[2024-12-11] MEDS ORDERED: DIPH25CA83 MT (16:35)
== END 2024-12-11 16:30 | disposition home or self-care (01) ==
LOC: ER 13:15
DX: R21 Rash and other nonspecific skin eruption (principal); E11.9 Type 2 diabetes mellitus without complications; I11.0 Hypertensive heart disease with heart failure; I50.9 Heart failure, unspecified; Z79.899 Other long term (current) drug therapy; E78.00 Pure hypercholesterolemia, unspecified; Z79.01 Long term (current) use of anticoagulants; F31.9 Bipolar disorder, unspecified; Z86.73 Personal history of transient ischemic attack (TIA), and cerebral infarction without residual deficits; Z79.84 Long term (current) use of oral hypoglycemic drugs; Z79.82 Long term (current) use of aspirin; Z98.890 Other specified postprocedural states
CPT/HCPCS: 99281

== ENCOUNTER 2025-08-18 17:52 | Emergency (ER) | payer MEDICARE, MEDICAID ==
[~2025-08-18] VITALS: Ht 152.4 cm; Wt 54.0 kg
[~2025-08-18 17:52] MED LIST changes: +DIPH25CA83 MT; +HYDR-4001 PO; -KETO15CR2 TP; +ONDA4TAB50 MT
[2025-08-18 17:56] VITALS: BP 124/77; TEMP 36.9; O2SAT 100
[2025-08-18 18:46] VITALS: PULSE 92; RESP 16; O2SAT 99
[2025-08-18] MEDS: IBUPROFEN 600MG TABLET PO ONE (20:02)
[2025-08-18 20:39] LABS: BASOPHILS % 0.6 % (0.0-2.0); EOSINOPHILS % 6.2 % (0.0-5.0); HEMATOCRIT. 37.5 % (36.0-48.0); HEMOGLOBIN. 12.4 g/dL (12.0-16.0); LYMPHOCYTES % 9.2 % (20.0-50.0); MEAN PLATELET VOLUME 7.7 fl (7.4-10.4); MONOCYTES % 5.7 % (2.0-8.0); NEUTROPHILS % 78.3 % (40.0-76.0); PLATELET 338 x1000/uL (130-400); RED BLOOD CELL COUNT 3.77 mill/uL (4.2-5.4); RED CELL DISTRIBUTION WIDTH 13.9 % (11.6-14.6)
[2025-08-18 20:55] LABS: CREATININE 0.6 mg/dL (0.6-1.0); UREA NITROGEN BLOOD 7 mg/dL (9-23)
[2025-08-18 20:57] LABS: ASPARTATE AMINOTRANSFERASE 17 IU/L (<34); BILIRUBIN DIRECT < 0.1 mg/dL (<=3.0); BILIRUBIN TOTAL 0.3 mg/dL (0.1-1.0); PROTEIN TOTAL 6.8 g/dL (6.0-8.3)
[2025-08-18 21:18] LABS: INFLUENZA TYPE A Presumptive Negative (Pres. Neg.)
[2025-08-18 21:19] LABS: INFLUENZA TYPE B Presumptive Negative (Pres. Neg.); RESPIRATORY SYNCYTIAL VIRUS Not Detected (Not Detectd)
[2025-08-18] MEDS ORDERED: BENZ100C86 MT (21:42)
[2025-08-18] MEDS ORDERED: TOPUD MT (21:42)
[2025-08-18] MEDS ORDERED: IBUP-2028 MT (21:42)
== END 2025-08-18 22:00 | disposition home or self-care (01) ==
LOC: ER 17:52
DX: B34.9 Viral infection, unspecified (principal); E11.9 Type 2 diabetes mellitus without complications; I50.9 Heart failure, unspecified; Z20.822 Contact with and (suspected) exposure to COVID-19; Z79.84 Long term (current) use of oral hypoglycemic drugs; Z79.899 Other long term (current) drug therapy; Z79.82 Long term (current) use of aspirin; Z79.01 Long term (current) use of anticoagulants; Z98.890 Other specified postprocedural states
CPT/HCPCS: 36415; 71045; 80048; 80076; 85025; 87420; 87426; 87804; 93005; 99284

== ENCOUNTER 2025-08-29 01:04 | Emergency (ER) | payer MEDICARE, MEDICAID ==
[~2025-08-29] VITALS: Ht 152.4 cm; Wt 46.2 kg
[~2025-08-29 01:04] MED LIST changes: +BENZ100C86 MT; +IBUP-2028 MT; +TOPUD MT
[2025-08-29] MEDS ORDERED: IBUP-2028 MT (01:11)
[2025-08-29 01:16] VITALS: TEMP 36.9; O2SAT 98
[2025-08-29] MEDS: IBUPROFEN 600MG TABLET PO ONE (01:34)
[2025-08-29] MEDS ORDERED: T3 PO (01:44)
[2025-08-29 01:52] VITALS: O2SAT 98
[2025-08-29 01:55] VITALS: BP 117/78; PULSE 88; RESP 16
[2025-08-29] MEDS: ACETAMINOPHEN WITH CODEINE 300/30MG TABLET PO ONE (01:55)
== END 2025-08-29 01:58 | disposition home or self-care (01) ==
LOC: ER 01:33
DX: S50.12XA Contusion of left forearm, initial encounter (principal); I50.9 Heart failure, unspecified; E78.00 Pure hypercholesterolemia, unspecified; E11.9 Type 2 diabetes mellitus without complications; Z79.01 Long term (current) use of anticoagulants; Z90.49 Acquired absence of other specified parts of digestive tract; Z79.899 Other long term (current) drug therapy; Z79.84 Long term (current) use of oral hypoglycemic drugs; Z79.82 Long term (current) use of aspirin; W19.XXXA Unspecified fall, initial encounter; Y93.89 Activity, other specified; Y92.89 Other specified places as the place of occurrence of the external cause; Y99.8 Other external cause status
CPT/HCPCS: 73090; 99283